=== PATIENT | female | born 1970 | race Caucasian/White ===

== ENCOUNTER 2016-12-11 12:14 | Emergency (ER) | payer BC ==
--- NOTE | ~2016-12-11 | CT4 ---
[facility] A Service of [facility] / [facility] RADIOLOGY TEXT RESULTS PATIENT: MADI LINDA LOCATION: SED : 70 UNIT #: [id number] AGE: [address]: Kerry Dubose MD SEX: F ORDER DR: [id number] [place] [id number] MR#: [id number] Acc #: [id number] NAME: MADI LINDA. : 1970 SEX: F STUDY DATE/TIME: 12/11/2016 13:36 UNIT: SED ROOM: STUDY DESCRIPTION: CT Abd and Pelv Wo Cont Attending Physician: Kerry Dubose M.D. Ordering Physician: Kerry Dubose M.D. Primary Care Physician: Parisa Fajardo D.O. MEDICAL IMAGING REPORT This report is preliminary unless electronic signature is present. EXAM Abdomen and pelvis CT without contrast HISTORY Low-back pain, irritability, weakness since yesterday. History of prior cholecystectomy. History of previous melanoma and kidney failure. COMMENT CT abdomen and pelvis performed without IV or oral contrast media using urinary tract stone protocol.. Lack of intravenous and oral contrast media limits evaluation for pathology other than urinary tract calculus disease. Noncontrast study is particularly insensitive for evaluation for metastatic disease. This CT exam was performed with one or more of the following radiation dose reduction techniques: automatic exposure control, adjustment of mA and/or kV according to patient size, and iterative reconstruction. There is no comparison. Evaluation lung bases shows linear atelectasis left base. Evaluation of the abdomen shows post cholecystectomy changes. The unenhanced liver, spleen, and adrenal glands unremarkable. There is mild fatty replacement of the pancreas. No intrarenal calculus or hydronephrosis. No ureteral calculus is suspected. Evaluation of the pelvis shows no evidence for bladder calculus. Uterus and adnexal structures are unremarkable. There is no free fluid in the pelvis. The appendix is radiographically unremarkable. There is no evidence for bowel obstruction or free intraperitoneal air. Mild levoconvex lumbar scoliosis. There are degenerative changes in the spine [facility] A Service of [facility] RADIOLOGY TEXT RESULTS PATIENT: MADI LINDA LOCATION: [facility] [place] : [birth year] UNIT #: [id number] AGE: [address]: Kerry Dubose MD SEX: F ORDER DR: including loss of disc height endplate spondylosis with some vacuum disc formation at L5-S1. At the 4-5 level there is endplate spondylosis and loss of disc height, worse posteriorly. Also there is multiple level mild anterior plate spondylosis. Milder loss of disc height at 2-3 and 3-4. At the L5-S1 level there is likely canal stenosis with mass effect on left greater than right lateral recess secondary to the degenerative disease. At the 4-5 level, probably milder canal stenosis secondary combination of endplate spondylosis, disc material and right greater than left sided facet arthritis. If more information is needed this is best pursued with an MRI of the lumbar spine on a nonemergent basis. IMPRESSION 1. No evidence for urinary tract calculus disease. 2. Postcholecystectomy. 3. No evidence for bowel obstruction, free air or drainable fluid collection. Appendix is unremarkable radiographically. 4. 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 This is best pursued with a nonemergent MRI of the lumbar spine if the patient is a candidate. 5. Please be aware that the noncontrast CT scan is relatively insensitive for assessment for metastatic disease. Dictated by... Deepali Fatima M.D. THIS IS AN ELECTRONICALLY VERIFIED REPORT Deepali Fatima M.D. at 12/12/2016 4:54 PM SKY/bassam TD: 12/12/2016 04:53 JOB #: [id number] MEDICAL IMAGING REPORT Page 1 of 1
[~2016-12-11 12:14] MED LIST: ATIVAN; BENZONATATE PO; CIPRO PO; CYMBALTA PO; DESYREL50 MG PO; DIAZEPAM; DURAGESIC TOP; DYAZIDE 37.5/251 CAP; FLAGYL PO; FLEXERIL; HYDROCODON-ACE1 EAC5 PO; K-DUR20 ME1 PO; LAMICTAL PO; LEXAPRO; LORTAB 10/500 T1 TAB; LORTAB 101 TAB 10/5; MAXIDE; MOTRIN400 MG PO; PHENERGAN DM1 ML PO; ROBITUSSIN A-C S5 ML PO; SUBOXONE 8 MG-1 EACH PO; TRIAMTERENE-HC1 EACH PO; XANAX0.5 M1 PO; ZITHROMAX PO; ZOLOFT; [UNRECOGNIZED DRUG - REMARK]
[2016-12-11 12:43] LABS: URINE SOURCE CLEAN CATCH
[2016-12-11 12:45] LABS: URINE APPEARANCE CLEAR; URINE BILIRUBIN NEG (NEG); URINE BLOOD NEG (NEG); URINE COLOR YELLOW; URINE GLUCOSE NEG (NORM); URINE KETONE NEG (NEG); URINE LEUKOCYTE ESTERASE NEG (NEG); URINE NITRATE NEG (NEG); URINE PROTEIN NEG (NEG); URINE SPECIFIC GRAVITY 1.015 (1.003-1.035); URINE UROBILINOGEN 0.2 MG/DL (NORM)
[2016-12-11 12:46] LABS: MICRO INDICATED? NO
[2016-12-11 12:50] LABS: BASOPHIL# 0.1 X10e3 (0-0.3); BASOPHIL% 1.3 % (0-2.5); DIFF IND NO; EOSINOPHIL# 0.2 X10e3 (0-0.7); EOSINOPHIL% 3.1 % (0.0-7.0); HEMATOCRIT 46.4 % (35.0-45.0); HEMOGLOBIN 15.8 gm/dL (12.0-16.0); LYMPHOCYTE# 2.6 X10e3 (1.0-3.5); LYMPHOCYTE% 33.9 % (17.0-45.0); MEAN CELL VOLUME 95.1 FL (83-96); MEAN CORPUSCULAR HEMOGLOBIN 32.4 PG (28-34); MEAN PLATELET VOLUME 10.1 FL (6.5-11.5); MONOCYTE# 0.7 X10e3 (0-1.0); NEUTROPHIL% 52.7 % (40-75); PLATELET COUNT 304 X10e3 (140-420); RED BLOOD COUNT 4.88 X10e (3.90-5.30); RED CELL DISTRIBUTION WIDTH 13.8 % (11.0-15.5); WHITE BLOOD COUNT 7.5 X10e3 (4.0-10.5)
[2016-12-11 13:07] LABS: ALBUMIN SERUM 4.5 g/dL (3.5-5.0); ALKALINE PHOSPHATASE 84 U/L (32-92); ALT (SGPT) 25 U/L (10-40); AST (SGOT) 28 U/L (10-42); BILIRUBIN,TOTAL 0.6 mg/dL (0.2-2.0); BLOOD UREA NITROGEN 12 mg/dL (9-23); CARBON DIOXIDE 27 mmol/L (22-31); CHLORIDE 93 mmol/L (100-111); CPK (CREATINE PHOSPHOKINASE) 100 IU/L (26-140); CREATININE SERUM 0.6 mg/dL (0.6-1.4); GLOM FILT RATE Estimated 109.3 mL/min (>60); GLUCOSE FASTING 149 mg/dL (70-110); POTASSIUM 3.4 mmol/L (3.5-5.1); PROTEIN TOTAL SERUM 7.5 g/dL (6.0-8.3); SODIUM 127 mmol/L (135-145)
[2016-12-11 13:09] LABS: BILIRUBIN, DIRECT <0.1 mg/dL (0.0-0.2); BILIRUBIN,INDIRECT 0.5 mg/dL (0.0-0.9)
== END 2016-12-11 14:55 | disposition home or self-care (01) ==
LOC: SED 12:14
PROVIDERS: Student in an Organized Health Care Education/Training Program
DX: M54.5 Low back pain (principal); R10.9 Unspecified abdominal pain; I10 Essential (primary) hypertension; F17.200 Nicotine dependence, unspecified, uncomplicated; Z88.8 Allergy status to other drugs, medicaments and biological substances; Z79.899 Other long term (current) drug therapy
CPT/HCPCS: 36415; 74176; 80048; 80076; 81003; 82550; 83735; 84703; 85025; 96374; 96375; 99285; J1885; J2405